=== PATIENT | male | born 1950 | race Caucasian/White ===

== ENCOUNTER → 2024-06-04 | Outpatient (CLI) | payer OTHER | END | disposition home or self-care (01) | LOC: SHCH 11:09 | PROVIDERS: ATTEND Internal Medicine Cardiovascular Disease | DX: I08.8 Other rheumatic multiple valve diseases (principal); I11.9 Hypertensive heart disease without heart failure | CPT/HCPCS: 93306 ==

== ENCOUNTER → 2024-06-06 | Outpatient (CLI) | payer OTHER ==
[2024-06-06] MEDS: REGADENOSON 0.4 MG/5 ML PF SYG IVP ONE (15:31)
== END | disposition home or self-care (01) ==
LOC: SHCH 07:58
PROVIDERS: ATTEND Internal Medicine Cardiovascular Disease
DX: I10 Essential (primary) hypertension (principal); I25.10 Atherosclerotic heart disease of native coronary artery without angina pectoris; R06.00 Dyspnea, unspecified
CPT/HCPCS: 78452; 93017; J2785; A9500 ×2